=== PATIENT | female | born 1955 | race African-American/Black ===

== ENCOUNTER 2020-10-24 21:11 | Emergency (ER) | payer OTHER ==
[2020-10-24 22:10] LABS: Absolute Lymphocytes (CBC) 1.8 K/uL (0.7-4.9); Basophils % 0.7 % (0-1.3); Hematocrit 37.2 % (36.0-45.0); Lymphocytes % 32.9 % (15.3-44.8); MPV 7.2 fL (7.6-11.3); RBC Red Blood Cell Count 3.99 M/uL (3.86-4.86)
[2020-10-24 22:16] LABS: Protime INR 0.97
[2020-10-24 22:27] LABS: ALT/SGPT 45 U/L (12-78); AST/SGOT 25 U/L (15-37); Albumin 3.5 g/dL (3.4-5.0); Alkaline Phosphatase 162 U/L (45-117); BUN Blood Urea Nitrogen 10 mg/dL (7-18); Bicarbonate 26 mmol/L (21-32); Bilirubin Direct 0.1 mg/dL (0-0.2); Bilirubin Total 0.3 mg/dL (0.2-1.0); CKMB Creatine Kinase MB 3.9 ng/mL (0.3-3.6); Creatine Phosphokinase 214 U/L (26-192); Glucose Level 98 mg/dL (74-106); Lipase 60 U/L (73-393); Potassium 3.9 mmol/L (3.5-5.1); Protein, Total 8.8 g/dL (6.4-8.2); Sodium Level 141 mmol/L (136-145); Troponin (Emerg Dept Use Only) < 0.02 ng/mL (0.0-0.045)
[2020-10-24 22:30] LABS: Valproic Acid (Depakene) Level < 3.0 ug/mL (50-100)
[2020-10-24 22:41] LABS: Urine Blood Negative (Negative); Urine Glucose Negative (Negative); Urine Protein Negative (Negative)
[2020-10-24 23:59] LABS: Phenytoin (Dilantin) Level 16.9 ug/mL (10.0-20.0)
[2020-10-25] MEDS ORDERED: NA CHLORIDE 0.9% 250 ML ONE (00:28)
[2020-10-25] MEDS ORDERED: NA CHLORIDE 0.9% 1,000 ML ONE (00:50)
[2020-10-25] MEDS ORDERED: TRAMADOL HCL 50 MG TAB ONE ×2 (01:35→05:02)
--- NOTE | 2020-10-25 02:06 | EDPHYS ---
Physician Documentation [facility] Name: Zohra Stroud Age: 65 yrs Sex: Female : 1955 Arrival Date: 10/24/2020 Time: 21:15 Bed 20 Private MD: ED Physician Tobin Grant HPI: 10/24 21:32 This 65 yrs old Black Female presents to ER via EMS with complaints of seizure. tw4 21:32 The patient presents with a history of multiple seizures, an unknown number, the tw4 episode(s) was witnessed, by family. Character of seizure(s): Loss of consciousness: it is not known if the patient experienced loss of consciousness, Motor activity: generalized, shaking all over, Incontinence:. Seizure onset: today. Context: the seizure(s) was witnessed, by family, occurred at home. Seizure Hx: Seizure medications: phenytoin. Associated injury: The patient did not suffer any apparent associated injury. The patient has not experienced similar symptoms in the past. Historical: - Allergies: 21:36 Unable to obtain; zb - Home Meds: 21:36 baclofen 20 mg Oral tab 1 tab 3 times per day [Active]; gabapentin 400 mg oral cap 1 zb cap 3 times per day [Active]; clonidine HCl 0.1 mg Oral tab 1 tab 2 times per day [Active]; lisinopril-hydrochlorothiazide 20-12.5 mg oral tab 1 tab once daily [Active]; mirtazapine 30 mg Oral tab 1 tab once daily [Active]; pantoprazole 40 mg oral TbEC 1 tab once daily [Active]; trazodone 100 mg Oral tab 1 tab [Active]; phenytoin sodium extended 100 mg oral cap 1 cap 3 times per day [Active]; venlafaxine 150 mg oral cp24 1 cap once daily [Active]; [place] 10-325 mg Oral tab 1 tab every 8 hours [Active]; - PMHx: 21:36 Seizures; Hypertension; GERD; brain tumor; zb - PSHx: 21:36 throat surgery; zb - Immunization history:: Adult Immunizations not immunized. - Social history:: Smoking status: Patient denies any tobacco usage or history of. ROS: 21:32 Constitutional: Negative for fever, chills, and weight loss, Eyes: Negative for injury, tw4 pain, redness, and discharge, Cardiovascular: Negative for chest pain, palpitations, and edema, Respiratory: Negative for shortness of breath, cough, wheezing, and pleuritic chest pain, Abdomen/GI: Negative for abdominal pain, nausea, vomiting, diarrhea, and constipation, Back: Negative for injury and pain, MS/Extremity: Negative for injury and deformity, Skin: Negative for injury, rash, and discoloration. 21:32 Neuro: Positive for seizure activity, Negative for altered mental status, dizziness, gait disturbance, headache, hearing loss, loss of consciousness, numbness, tinnitus, tremor, visual changes, weakness. Exam: 21:43 Constitutional: This is a well developed, well nourished patient who is awake, alert, tw4 and in no acute distress. Head/Face: Normocephalic, atraumatic. Chest/axilla: Normal chest wall appearance and motion. Nontender with no deformity. No lesions are appreciated. Cardiovascular: Regular rate and rhythm with a normal S1 and S2. No gallops, murmurs, or rubs. Normal PMI, no JVD. No pulse deficits. Respiratory: Lungs have equal breath sounds bilaterally, clear to auscultation and percussion. No rales, rhonchi or wheezes noted. No increased work of breathing, no retractions or nasal flaring. Abdomen/GI: Soft, non-tender, with normal bowel sounds. No distension or tympany. No guarding or rebound. No evidence of tenderness throughout. Back: No spinal tenderness. No costovertebral tenderness. Full range of motion. MS/ Extremity: Pulses equal, no cyanosis. Neurovascular intact. Full, normal range of motion. 21:43 Neuro: Orientation: is normal, Mentation: is normal, Memory: is normal, Cranial nerves: grossly normal, Motor: is normal, moves all fours, resting tremors. Vital Signs: 21:22 BP 180 / 99; Pulse 98; Resp 20; Temp 98.4; Pulse Ox 100% on R/A; Weight 77.11 kg; zb Height 5 ft. 4 in. (162.56 cm); Pain 0/10; 22:21 BP 153 / 99; Pulse 98; Resp 18; Pulse Ox 100% on R/A; zb 0404 00:30 BP 161 / 110; Pulse 100; Resp 17; Pulse Ox 98% ; rr5 01:29 BP 148 / 96; Pulse 95; Resp 17; Pulse Ox 98% ; rr5 02:18 BP 156 / 90; Pulse 90; Resp 17; Pulse Ox 99% ; rr5 03:30 BP 165 / 89; Pulse 93; Resp 17; Pulse Ox 98% ; rr5 05:30 BP 159 / 95; Pulse 85; Resp 16; Pulse Ox 96% ; rr5 08:23 BP 148 / 90; Pulse 95; Resp 18 S; Pulse Ox 97% on R/A; jd3 10/24 21:22 Body Mass Index 29.18 (77.11 kg, 162.56 cm) zb MDM: 10/24 21:16 Patient medically screened. 4 10/25 02:14 Data reviewed: vital signs, nurses notes. Data interpreted: Pulse oximetry:. Counseling: I had a detailed discussion with the patient and/or guardian regarding: the historical points, exam findings, and any diagnostic results supporting the discharge/admit diagnosis. Special discussion: I discussed with the patient/guardian in detail that at this point there is no indication for admission to the hospital. It is understood, however, that if the symptoms persist or worsen the patient needs to return immediately for re-evaluation. 10/24 21:18 Order name: UDS 10/24 21:18 Order name: Basic Metabolic Panel [facility] 10/24 21:18 Order name: CBC with Diff 10/24 21:18 Order name: Ckmb [facility] 10/24 21:18 Order name: CPK [facility] 10/24 23:29 Interpretation: Abnormal: CPK 214. [facility] 10/24 21:18 Order name: Hepatic Function [facility] 10/24 23:32 Interpretation: Normal except: ALK 162; A/G 0.7; GLOB 5.3; TP 8.8. 10/24 21:18 Order name: Lipase [facility] 10/24 23:32 Interpretation: Abnormal: LIP 60. 10/24 21:18 Order name: Magnesium [facility] 10/24 23:33 Interpretation: Within normal limits: MG 2.0. [facility] 10/24 21:18 Order name: Protime (+inr); Complete Time: 23:29 [facility] 10/24 23:33 Interpretation: Within normal limits: PT 11.1. 10/24 21:18 Order name: Ptt, Activated; Complete Time: 23:29 tw4 10/24 23:33 Interpretation: Within normal limits: PTT 24.6. tw4 10/24 21:18 Order name: Troponin (emerg Dept Use Only) tw4 10/24 23:33 Interpretation: TROPED < 0.02. tw4 10/24 21:18 Order name: Depakote tw 10/24 23:32 Interpretation: VALP < 3.0. tw4 10/24 21:19 Order name: Basic Metabolic Panel EDAZ 10/24 23:32 Interpretation: Normal except: CL 111; GFR 83. tw4 10/24 21:18 Order name: Cardiac monitoring; Complete Time: 21:39 [facility] 10/24 21:18 Order name: IV Saline Lock; Complete Time: 21:39 tw 10/24 21:18 Order name: Labs collected and sent; Complete Time: 21:39 tw4 10/24 21:18 Order name: NPO; Complete Time: 21:39 [facility] 10/24 21:18 Order name: O2 Per Protocol; Complete Time: 21:39 tw4 10/24 21:18 Order name: O2 Sat Monitoring; Complete Time: 22:09 tw4 10/24 21:18 Order name: Urine Dipstick-Ancillary (obtain specimen); Complete Time: 22:47 tw4 10/24 21:19 Order name: CBC with Automated Diff; Complete Time: 23:29 EDMS 10/24 23:33 Interpretation: Normal except: MPV 7.2. tw4 10/24 21:19 Order name: CKMB Creatine Kinase MB EDAZ 10/24 23:33 Interpretation: CKMB 3.9. tw4 10/24 22:40 Order name: Urine Dipstick-Ancillary; Complete Time: 23:29 EDMS 10/24 23:35 Order name: Dilantin zb 10/24 23:38 Order name: Phenytoin (Dilantin) Level; Complete Time: 00:08 EDMS 10/25 00:08 Interpretation: Within normal limits. tw4 10/25 08:05 Order name: Diet Regular; Complete Time: 08:06 jd3 Administered Medications: 00:20 Dru grams of (Phenytoin 1 grams, NS 0.9% 250 ml) Route: IVPB; Site: right hand; rr5 01:20 Follow up: Response: No adverse reaction; IV Status: Completed infusion; IV Intake: rr5 250ml 04:48 Drug: traMADol 50 mg {Note: rass 0.} Route: PO; rr5 06:21 Follow up: Response: No adverse reaction; RASS: Alert and Calm (0) rr5 Disposition: 10/25/20 02:05 Discharged to Home. Impression: Epileptic seizures related to external causes, not intractable. - Condition is Stable. - Discharge Instructions: Seizure, Adult. - Prescriptions for Dilantin [place] 100 mg Oral Capsule - take 1 capsule by ORAL route every 8 hours; 30 capsule. - Medication Reconciliation Form, Thank You Letter, Antibiotic Education, Prescription Opioid Use form. - Follow up: Private Physician; When: Upon discharge from the Emergency Department; Reason: Recheck today's complaints, Continuance of care, Re-evaluation by your physician. Follow up: Nico Puentes MD; When: Upon discharge from the Emergency Department; Reason: Recheck today's complaints, Continuance of care, Re-evaluation by your physician. - Problem is an ongoing problem. - Symptoms have improved. Signatures: Dispatcher [employer] EDAZ Dong Diaz RN RN jd3 Tobin Grant MD MD tw4 Didier Yeung RN RN rr5 Pamela Chappell RN RN zb Corrections: (The following items were deleted from the chart) 10/24 23:38 23:36 Phenytoin (Dilantin) Level ordered. [facility] 10/25 02:06 02:05 10/25/2020 02:05 Discharged to Home. Impression: Epileptic seizures related to tw4 external causes, not intractable. Condition is Stable. Forms are Medication Reconciliation Form, Thank You Letter, Antibiotic Education, Prescription Opioid Use. Follow up: Private Physician; When: Upon discharge from the Emergency Department; Reason: Recheck today's complaints, Continuance of care, Re-evaluation by your physician. Problem is an ongoing problem. Symptoms have improved. tw4 09:30 02:06 10/25/2020 02:05 Discharged to Home. Impression: Epileptic seizures related to jd3 external causes, not intractable. Condition is Stable. Discharge Instructions: Seizure, Adult. Forms are Medication Reconciliation Form, Thank You Letter, Antibiotic Education, Prescription Opioid Use. Follow up: Private Physician; When: Upon discharge from the Emergency Department; Reason: Recheck today's complaints, Continuance of care, Re-evaluation by your physician. Follow up: Nico Puentes; When: Upon discharge from the Emergency Department; Reason: Recheck today's complaints, Continuance of care, Re-evaluation by your physician. Problem is an ongoing problem. Symptoms have improved. tw4
--- NOTE | 2020-10-25 02:06 | ER ---
Nurse's Notes [facility] Name: Zohra Stroud Age: 65 yrs Sex: Female : 1955 Arrival Date: 10/24/2020 Time: 21:15 Bed 20 Private MD: Diagnosis: Epileptic seizures related to external causes, not intractable Presentation: 10/24 21:22 Chief complaint: EMS states: Patient family called states she has been having seizure zb all day. Last seizure activity was about an hour ago. Patient has history of seizures and brain tumor. BGL 129. Coronavirus screen: At this time, the client does not indicate any symptoms associated with coronavirus-19. Ebola Screen: No symptoms or risks identified at this time. Initial Sepsis Screen: Does the patient meet any 2 criteria? No. Patient's initial sepsis screen is negative. Does the patient have a suspected source of infection? No. Patient's initial sepsis screen is negative. Risk Assessment: Do you want to hurt yourself or someone else? Patient reports no desire to harm self or others. Onset of symptoms was October 24, 2020. Care prior to arrival: None. 21:22 Acuity: PUNEET 3 zb 21:22 Method Of Arrival: EMS: [facility] zb Triage Assessment: 21:37 General: Appears uncomfortable, Behavior is cooperative. Pain: Complains of pain in zb bilateral knee pain. 21:37 Neuro: Level of Consciousness is awake, alert, obeys commands, confused, Oriented to zb person, place, situation, patient has generalized tremors. . Seizure activity reported prior to arrival. Cardiovascular: Capillary refill < 3 seconds Patient's skin is warm and dry. Respiratory: Airway is patent Respiratory effort is even, unlabored, Respiratory pattern is regular. GI: No signs and/or symptoms were reported involving the gastrointestinal system. : No signs and/or symptoms were reported regarding the genitourinary system. Derm: Skin is intact, is healthy with good turgor, Skin is dry, Skin is normal, Skin temperature is warm. Musculoskeletal: Capillary refill < 3 seconds, in bilateral fingers. Historical: - Allergies: 21:36 Unable to obtain; zb - Home Meds: 21:36 baclofen 20 mg Oral tab 1 tab 3 times per day [Active]; gabapentin 400 mg oral cap 1 zb cap 3 times per day [Active]; clonidine HCl 0.1 mg Oral tab 1 tab 2 times per day [Active]; lisinopril-hydrochlorothiazide 20-12.5 mg oral tab 1 tab once daily [Active]; mirtazapine 30 mg Oral tab 1 tab once daily [Active]; pantoprazole 40 mg oral TbEC 1 tab once daily [Active]; trazodone 100 mg Oral tab 1 tab [Active]; phenytoin sodium extended 100 mg oral cap 1 cap 3 times per day [Active]; venlafaxine 150 mg oral cp24 1 cap once daily [Active]; [place] 10-325 mg Oral tab 1 tab every 8 hours [Active]; - PMHx: 21:36 Seizures; Hypertension; GERD; brain tumor; zb - PSHx: 21:36 throat surgery; zb - Immunization history:: Adult Immunizations not immunized. - Social history:: Smoking status: Patient denies any tobacco usage or history of. Screenin:19 Abuse screen: Denies threats or abuse. Denies injuries from another. Nutritional zb screening: No deficits noted. Tuberculosis screening: No symptoms or risk factors identified. Fall Risk None identified. Assessment: 21:36 Reassessment: ECP at bedside. zb 22:22 Reassessment: pt placed on bedpan. zb 22:55 Reassessment: Patient appears in no apparent distress at this time. Patient and/or zb family updated on plan of care and expected duration. Pain level reassessed. Patient is alert, oriented x 3, equal unlabored respirations, skin warm/dry/pink. 10/25 00:15 Reassessment: Patient appears in no apparent distress at this time. received awake, no rr5 signs of active seizure, IV line in the left hand infiltrated, IV removed pressure dressing applied. 01:20 Reassessment: complaints of knee pain, patient took her norco as her own patient rr5 medication, ED provider aware. 02:00 Reassessment: patient sat on the edge of the bed and saying " I am having seizure, I am rr5 having seizure" vital signs checked and recorded,placed on bed comfortably, patient able to follows command. for discharge patient cannot remember any contact number. 02:16 Reassessment: pt jack Mendez [phone]. sg 02:23 Reassessment: tried multiple times to call power mendez [phone] unable to connect. rr5 02:29 Reassessment: Contacted [employer]/ spoke with Carine. Carine states [place] PD sg took the call and should be able to give phone number from the original caller. Reassessment: Jose Rafael ROACH contacted, state that a "Rossy" had called from a number listed at [phone] for the patient. primary nurse to attempt to call family at the number provided. 02:37 Reassessment: per primary nurse, Rossy states that there is no family/friend sg available to pick the patient up from the ER until approx 0900. Bark Peeler has been notified, pt to remain in the exam room until family/friend arrives to take patient to home. 03:00 Reassessment: nikolas contact number [phone]. rr5 04:00 Reassessment: Patient appears in no apparent distress at this time. resting eyes closed rr5 on side lying position breathing spontaneously at room air. 04:49 Reassessment: Patient appears in no apparent distress at this time. complaining of leg rr5 pain, ED provider informed with order made and carried out. 06:13 Reassessment: Patient appears in no apparent distress at this time. eyes closed, rr5 breathing spontaneously at room air.vital signs taken. 07:13 General: Appears in no apparent distress. comfortable, Behavior is calm, cooperative, jd3 appropriate for age. Pain: Denies pain. Neuro: Level of Consciousness is awake, alert, obeys commands, confused, Oriented to person, place, situation. Cardiovascular: Denies chest pain, Capillary refill < 3 seconds Patient's skin is warm and dry. Respiratory: Airway is patent Respiratory effort is even, unlabored, Respiratory pattern is regular, symmetrical, Denies cough, shortness of breath. GI: No signs and/or symptoms were reported involving the gastrointestinal system. : No signs and/or symptoms were reported regarding the genitourinary system. EENT: No signs and/or symptoms were reported regarding the EENT system. Derm: Skin is intact, Skin is dry, Skin is normal, Skin temperature is warm. Musculoskeletal: Circulation, motion, and sensation intact. Range of motion: intact in all extremities. 07:15 Reassessment: awaiting family arrival for pt discharge. jd3 08:20 Reassessment: Patient appears in no apparent distress at this time. No changes from jd3 previously documented assessment. Patient and/or family updated on plan of care and expected duration. Pain level reassessed. pt resting in bed reporting she is having a seizure. pt fully awake and talking with nurse with no signs of seizure activity. 09:29 Reassessment: Patient appears in no apparent distress at this time. Patient and/or jd3 family updated on plan of care and expected duration. Pain level reassessed. Patient is alert, oriented x 3, equal unlabored respirations, skin warm/dry/pink. pt assisted to family's vehicle with wheelchair. Vital Signs: 10/24 21:22 BP 180 / 99; Pulse 98; Resp 20; Temp 98.4; Pulse Ox 100% on R/A; Weight 77.11 kg; zb Height 5 ft. 4 in. (162.56 cm); Pain 0/10; 22:21 BP 153 / 99; Pulse 98; Resp 18; Pulse Ox 100% on R/A; zb 10/25 00:30 BP 161 / 110; Pulse 100; Resp 17; Pulse Ox 98% ; rr5 01:29 BP 148 / 96; Pulse 95; Resp 17; Pulse Ox 98% ; rr5 02:18 BP 156 / 90; Pulse 90; Resp 17; Pulse Ox 99% ; rr5 03:30 BP 165 / 89; Pulse 93; Resp 17; Pulse Ox 98% ; rr5 05:30 BP 159 / 95; Pulse 85; Resp 16; Pulse Ox 96% ; rr5 08:23 BP 148 / 90; Pulse 95; Resp 18 S; Pulse Ox 97% on R/A; jd3 10/24 21:22 Body Mass Index 29.18 (77.11 kg, 162.56 cm) zb ED Course: 10/24 21:15 Patient arrived in ED. tw4 21:16 Tobin Grant MD is Attending Physician. tw4 21:22 Pamela Chappell, STANTON is Primary Nurse. zb 21:25 Triage completed. zb 22:21 Patient has correct armband on for positive identification. Fall risk band placed. Bed zb in low position. Call light in reach. Side rails up X 1. automobile service writer on. Pulse ox on. NIBP on. Door closed. Noise minimized. Warm blanket given. 22:21 Arm band placed on. zb 10/25 00:20 Inserted saline lock: 22 gauge in right hand, using aseptic technique. rr5 02:06 Nico Puentes MD is Referral Physician. tw4 09:30 No provider procedures requiring assistance completed. IV discontinued, intact, jd3 bleeding controlled, No redness/swelling at site. Pressure dressing applied. Administered Medications: 00:20 Dru grams of (Phenytoin 1 grams, NS 0.9% 250 ml) Route: IVPB; Site: right hand; rr5 01:20 Follow up: Response: No adverse reaction; IV Status: Completed infusion; IV Intake: rr5 250ml 04:48 Drug: traMADol 50 mg {Note: rass 0.} Route: PO; rr5 06:21 Follow up: Response: No adverse reaction; RASS: Alert and Calm (0) rr5 Intake: 01:20 IV: 250ml; Total: 250ml. rr5 Output: 01:00 Other: 1 (Diapers) ; Total: 0ml. rr5 03:00 Other: 1 (Diapers) ; Total: 0ml. rr5 Outcome: 02:05 Discharge ordered by MD. tw4 09:30 Discharged to home via wheelchair, with family. jd3 09:30 Condition: stable 09:30 Discharge instructions given to patient, Instructed on discharge instructions, follow up and referral plans. medication usage, Demonstrated understanding of instructions, follow-up care, medications, Prescriptions given X 1. 09:30 Patient left the ED. jd3 Signatures: Nii Leong RN RN sg Davies, Jonathon, RN RN jd3 Tobin Grant MD MD tw4 Didier Yeung RN RN rr5 Pamela Chappell RN RN zb Corrections: (The following items were deleted from the chart) 10/24 22:12 21:37 Pain: Complains of pain in bilateral knee pain zb zb 10/25 09:30 09:29 Reassessment: Patient appears in no apparent distress at this time. Patient jd3 and/or family updated on plan of care and expected duration. Pain level reassessed. Patient is alert, oriented x 3, equal unlabored respirations, skin warm/dry/pink. pt assisted to families vehicle with wheelchair jd3
[2020-10-25 09:37] VITALS: TEMP 98.4
[2020-10-25 09:45] VITALS: BP 148/90; O2SAT 97
== END 2020-10-25 09:30 | disposition home or self-care (01) ==
LOC: ER 21:11
DX: G40.509 Epileptic seizures related to external causes, not intractable, without status epilepticus (principal); I10 Essential (primary) hypertension; K21.9 Gastro-esophageal reflux disease without esophagitis; Z86.011 Personal history of benign neoplasm of the brain
CPT/HCPCS: 85025; 80048; 36415; 83735; 82550; 85610; 80076; 80164; 85730; 80185; 81003; 84484; 82553; 83690; J1165; J7050; J7030; 96365; 99284